=== PATIENT | female | born 2000 | race African-American/Black ===

== ENCOUNTER 2021-08-16 12:07 | Emergency (ER) | payer OTHER ==
[2021-08-16] MEDS: Ibuprofen 200 MG Tab PO STA (12:41)
== END 2021-08-16 13:06 | disposition home or self-care (01) ==
LOC: VM.ED 12:07
DX: M62.838 Other muscle spasm (principal); M25.69 Stiffness of other specified joint, not elsewhere classified
CPT/HCPCS: 99283; 99284; A9270